=== PATIENT | male | born 1955 | race Caucasian/White ===

== ENCOUNTER 2019-05-25 13:14 | Inpatient (IN) | payer MEDICARE ==
[~2019-05-25] VITALS: Ht 180.3 cm; Wt 108.0 kg
[2019-05-31 07:05] VITALS: BP 109/68
== END 2019-05-31 16:10 | disposition home health service (06) | DRG 580 ==
LOC: ED 13:47 → EDIP 14:45 → 4WST 17:27 → DCLOUNGE 05-31 16:00
PROVIDERS: ADMIT Internal Medicine; ATTEND Internal Medicine
PROC: 0J9Q0ZZ Drainage of Right Foot Subcutaneous Tissue and Fascia, Open Approach (ICD-10-PCS; principal; 2019-05-25)
DX: L02.611 Cutaneous abscess of right foot (principal); L03.115 Cellulitis of right lower limb; Z94.1 Heart transplant status; D86.0 Sarcoidosis of lung; E78.5 Hyperlipidemia, unspecified; D86.89 Sarcoidosis of other sites; I10 Essential (primary) hypertension; Z79.01 Long term (current) use of anticoagulants; Z79.899 Other long term (current) drug therapy; Z80.1 Family history of malignant neoplasm of trachea, bronchus and lung; Z80.41 Family history of malignant neoplasm of ovary; Z80.8 Family history of malignant neoplasm of other organs or systems; Z86.718 Personal history of other venous thrombosis and embolism; Z95.810 Presence of automatic (implantable) cardiac defibrillator
CPT/HCPCS: 10060; 36415; 71045; 80048; 80053; 82040; 83605; 83735; 84100; 84145; 84439; 84443; 85025; 85651; 86140; 87040; 87070; 87075; 87081; 87205; 93005; 96365; 96366; G0378; J0295; J0690; J3010; J3370; J7507; Q9967; J7030; J7040